=== PATIENT | female | born 1980 | race African-American/Black ===

== ENCOUNTER 2021-05-10 20:54 | Emergency (ER) | payer OTHER ==
[2021-05-10 21:05] VITALS: BP 136/83; PULSE 81; TEMP 98.6; BMI 25.9
[2021-05-10] MEDS ORDERED: KETOROLAC TROMETHAMINE 15 MG/ML VIAL IM ONE (21:18)
[2021-05-10] MEDS ORDERED: diazePAM 5 MG TABLET PO ONE (21:21)
[2021-05-10] MEDS ORDERED: LIDOCAINE 5% TOPICAL PATCH TP ONE (21:21)
[2021-05-10] MEDS ORDERED: diazePAM 5 MG TABLET ONE (21:27)
[2021-05-10] MEDS ORDERED: KETOROLAC TROMETHAMINE 15 MG/ML VIAL ONE (21:27)
[2021-05-10] MEDS ORDERED: LIDOCAINE 5% TOPICAL PATCH ONE (21:27)
[2021-05-11] MEDS ORDERED: LIDOCAINE PATCH REMOVAL MC ONE (09:30)
== END 2021-05-10 22:09 | disposition home or self-care (01) ==
LOC: JERFT 20:54 → JER 20:54 → JERFT 22:09
PROC: 3E0233Z Introduction of Anti-inflammatory into Muscle, Percutaneous Approach (ICD-10-PCS; principal; 2021-05-10)
DX: S29.012A Strain of muscle and tendon of back wall of thorax, initial encounter (principal)
CPT/HCPCS: 99284-25

== ENCOUNTER 2022-09-03 17:46 | Inpatient (IN) | payer OTHER ==
[2022-09-03 19:00] LABS: BASO % 1.4 % (0-2.0); EOS % 0.6 % (0-4.5); HEMATOCRIT 43.8 % (32.4-45.2); HEMOGLOBIN 13.8 GM/dL (10.7-15.3); LYMPH % 13.5 % (8-40); MCH 30.1 pg (25.7-33.7); MCHC 31.6 g/dl (32.0-36.0); MEAN CELL VOLUME 95.3 fl (80-96); MEAN PLT VOLUME 9.7 fl (7.5-11.1); MONO % 11.9 % (3.8-10.2); NEUT % 72.6 % (42.8-82.8); PLATELET COUNT 211 10^3/uL (134-434); RDW 13.3 % (11.6-15.6); WHITE BLOOD COUNT 5.7 K/mm3 (4.0-10.0)
[2022-09-03 19:07] LABS: INR 1.01 (0.83-1.09); PROTHROMBIN TIME (PATIENT) 11.6 SEC (9.7-13.0)
[2022-09-03 19:09] LABS: ACTIVATED PTT 28.1 SECONDS (25.2-36.5)
[2022-09-03] MEDS ORDERED: ASPIRIN 81 MG CHEWABLE TABLETS PO ONE (19:17)
[2022-09-03] MEDS ORDERED: CLOPIDOGREL BISULFATE 300 MG TABLET PO ONE (19:18)
[2022-09-03 19:21] LABS: ALBUMIN 3.2 g/dl (3.4-5.0); CALCIUM 8.4 mg/dL (8.5-10.1)
[2022-09-03] MEDS ORDERED: ASPIRIN 81 MG CHEWABLE TABLETS ONE (19:23)
[2022-09-03] MEDS ORDERED: CLOPIDOGREL BISULFATE 300 MG TABLET ONE (19:23)
[2022-09-03 19:26] LABS: CREATININE 0.8 mg/dL (0.55-1.3); TOT PROT 6.7 g/dl (6.4-8.2)
[2022-09-03 19:28] LABS: BILIRUBIN,TOTAL 0.2 mg/dL (0.2-1)
[2022-09-03] MEDS: SODIUM CHLORIDE 1,000 ML IV SCH (19:33)
[2022-09-03] MEDS ORDERED: ACETAMINOPHEN 1000 MG/100 ML BAG IVPB ONE (21:13)
[2022-09-03 21:22] LABS: URINE APPEARANCE CLEAR; URINE BILIRUBIN NEGATIVE (NEGATIVE); URINE COLOR YELLOW; URINE GLUCOSE (UA) NEGATIVE (NEGATIVE); URINE KETONE NEGATIVE (NEGATIVE)
[2022-09-03 21:23] LABS: URINE LEUK ESTERASE NEGATIVE (NEGATIVE); URINE NITRITE NEGATIVE (NEGATIVE); URINE PROTEIN NEGATIVE (NEGATIVE); URINE UROBILINOGEN 0.2 mg/dL (0.2-1.0)
[2022-09-03] MEDS ORDERED: ACETAMINOPHEN INJECTION 100 ML IVPB ONE (22:59)
[2022-09-04 03:30] VITALS: BMI 27.2
[2022-09-04] MEDS ORDERED: levETIRAcetam 500 MG/5 ML INJECTION VIAL IVPB ONE (05:45)
[2022-09-04 08:04] LABS: EOS % 1.9 % (0-4.5); HEMATOCRIT 40.4 % (32.4-45.2); HEMOGLOBIN 13.2 GM/dL (10.7-15.3); LYMPH % 28.9 % (8-40); MCH 30.8 pg (25.7-33.7); MCHC 32.7 g/dl (32.0-36.0); MEAN CELL VOLUME 94.2 fl (80-96); MEAN PLT VOLUME 10.4 fl (7.5-11.1); NEUT % 56.2 % (42.8-82.8); PLATELET COUNT 203 10^3/uL (134-434); RBC 4.29 M/mm3 (3.60-5.2); RDW 13.5 % (11.6-15.6)
[2022-09-04 08:08] LABS: ALBUMIN 2.9 g/dl (3.4-5.0); BLOOD UREA NITROGEN 5.2 mg/dL (7-18); CALCIUM 8.2 mg/dL (8.5-10.1)
[2022-09-04 08:11] LABS: CREATININE 0.6 mg/dL (0.55-1.3); PHOSPHOROUS 3.7 mg/dL (2.5-4.9)
[2022-09-04 08:14] LABS: BILIRUBIN,TOTAL 0.5 mg/dL (0.2-1); TOT PROT 5.9 g/dl (6.4-8.2)
[2022-09-04] MEDS: ASPIRIN 81 MG CHEWABLE TABLETS PO SCH (09:42)
[2022-09-04] MEDS: ENOXAPARIN NA (PORCINE) 40 MG/0.4 ML DISP.SYRIN SQ SCH (09:42)
[2022-09-04] MEDS: FOLIC ACID 1 MG TABLET (FP) PO SCH (09:42)
[2022-09-04] MEDS: levETIRAcetam 500 MG TABLET (FP) PO SCH ×2 (09:42→21:34)
[2022-09-04] MEDS: BICTEGRAV/EMTRICIT/TENOFOV (BIKTARVY) 50-200-25 MG TABLET PO SCH (11:02)
[2022-09-04] MEDS ORDERED: LIDOCAINE 5% TOPICAL PATCH TP SCH (13:45)
[2022-09-04] MEDS: SODIUM CHLORIDE 1,000 ML IV SCH (21:35)
[2022-09-04] MEDS: LIDOCAINE PATCH REMOVAL MC SCH (22:40)
[2022-09-05 08:23] LABS: ALBUMIN 2.8 g/dl (3.4-5.0); CALCIUM 8.4 mg/dL (8.5-10.1)
[2022-09-05 08:27] LABS: CREATININE 0.6 mg/dL (0.55-1.3)
[2022-09-05 08:28] LABS: BILIRUBIN,TOTAL 0.5 mg/dL (0.2-1)
[2022-09-05] MEDS: ENOXAPARIN NA (PORCINE) 40 MG/0.4 ML DISP.SYRIN SQ SCH (09:46)
[2022-09-05] MEDS: ASPIRIN 81 MG CHEWABLE TABLETS PO SCH (09:46)
[2022-09-05] MEDS: BICTEGRAV/EMTRICIT/TENOFOV (BIKTARVY) 50-200-25 MG TABLET PO SCH (09:46)
[2022-09-05] MEDS: levETIRAcetam 500 MG TABLET (FP) PO SCH ×2 (09:46→21:49)
[2022-09-05] MEDS: LIDOCAINE 5% TOPICAL PATCH TP SCH (09:46)
[2022-09-05] MEDS: FOLIC ACID 1 MG TABLET (FP) PO SCH (09:46)
[2022-09-05 18:00] VITALS: RESP 18
[2022-09-05] MEDS: LIDOCAINE PATCH REMOVAL MC SCH (22:11)
[2022-09-06 09:02] VITALS: BP 99/57; PULSE 100; TEMP 98.5
[2022-09-06] MEDS: ASPIRIN 81 MG CHEWABLE TABLETS PO SCH (11:07)
[2022-09-06] MEDS: LIDOCAINE 5% TOPICAL PATCH TP SCH (11:08)
[2022-09-06] MEDS: BICTEGRAV/EMTRICIT/TENOFOV (BIKTARVY) 50-200-25 MG TABLET PO SCH (11:08)
[2022-09-06] MEDS: FOLIC ACID 1 MG TABLET (FP) PO SCH (11:08)
[2022-09-06] MEDS: ENOXAPARIN NA (PORCINE) 40 MG/0.4 ML DISP.SYRIN SQ SCH (11:08)
[2022-09-06] MEDS: levETIRAcetam 500 MG TABLET (FP) PO SCH (11:08)
== END 2022-09-06 15:40 | disposition home or self-care (01) | DRG 894 ==
LOC: JER 17:46 → JERBED 19:19 → J4W 09-04 03:07
PROVIDERS: ADMIT Internal Medicine; ATTEND Internal Medicine
DX: G40.909 Epilepsy, unspecified, not intractable, without status epilepticus (principal); B20 Human immunodeficiency virus [HIV] disease; M54.9 Dorsalgia, unspecified; R29.898 Other symptoms and signs involving the musculoskeletal system; F41.9 Anxiety disorder, unspecified
CPT/HCPCS: 36415; 70450-TC; 70496-TC; 70498-TC; 70551-TC; 80053; 80061; 81003; 82308; 82550; 82962; 83036; 83735; 84100; 84443; 84484; 85025; 85610; 85730; 86359; 86360; 86850; 86900; 86901; 93005; 93010; 93306-TC; 95816; 97116-GP; 97162-GP; 99285-25; C9803-CS; U0003; U0005

== ENCOUNTER 2022-10-28 08:28 | Inpatient (IN) | payer OTHER ==
[2022-10-28] MEDS ORDERED: ONDANSETRON 4 MG/2 ML VIAL IVPUSH ONE ×2 (08:31→20:24)
[2022-10-28 08:46] VITALS: BMI 26.6
[2022-10-28] MEDS ORDERED: METOCLOPRAMIDE HCL INJECTION 10 MG/2 ML VIAL IVPUSH ONE (09:25)
[2022-10-28] MEDS ORDERED: SODIUM CHLORIDE 0.9% 500 ML INFUS.BAG IV ONE (09:25)
[2022-10-28] MEDS ORDERED: levETIRAcetam 500 MG/5 ML INJECTION VIAL IVPB ONE ×2 (10:32→10:40)
[2022-10-28] MEDS ORDERED: METOCLOPRAMIDE HCL INJECTION 10 MG/2 ML VIAL ONE (10:41)
[2022-10-28 10:50] LABS: BASO % 0.8 % (0-2.0); EOS % 2.1 % (0-4.5); HEMATOCRIT 42.4 % (32.4-45.2); LYMPH % 27.8 % (8-40); MEAN PLT VOLUME 10.4 fl (7.5-11.1); MONO % 9.8 % (3.8-10.2); NEUT % 59.5 % (42.8-82.8); PLATELET COUNT 192 10^3/uL (134-434); RDW 13.8 % (11.6-15.6); WHITE BLOOD COUNT 6.3 K/mm3 (4.0-10.0)
[2022-10-28 10:59] LABS: ACTIVATED PTT 27.2 SECONDS (25.2-36.5); INR 1.07 (0.83-1.09); PROTHROMBIN TIME (PATIENT) 12.3 SEC (9.7-13.0)
[2022-10-28] MEDS ORDERED: LORazepam 2 MG/ML SDV VIAL IVPUSH ONE (11:08)
[2022-10-28 11:11] LABS: CALCIUM 8.4 mg/dL (8.5-10.1)
[2022-10-28 11:12] LABS: ALBUMIN 3.2 g/dl (3.4-5.0); BLOOD UREA NITROGEN 8.7 mg/dL (7-18)
[2022-10-28 11:14] LABS: CREATININE 0.7 mg/dL (0.55-1.3)
[2022-10-28 11:16] LABS: BILIRUBIN,TOTAL 0.3 mg/dL (0.2-1); TOT PROT 6.7 g/dl (6.4-8.2)
[2022-10-28] MEDS ORDERED: ACETAMINOPHEN 1000 MG/100 ML BAG IVPB ONE ×2 (12:19→20:23)
[2022-10-28] MEDS ORDERED: ENOXAPARIN NA (PORCINE) 40 MG/0.4 ML DISP.SYRIN SQ ONE (18:03)
[2022-10-28 21:39] LABS: CHOLESTEROL 155 mg/dL (50-200)
[2022-10-28 21:40] LABS: LDL CHOLESTEROL (ONLY SJRH) 107 mg/dL (5-100); TRIGLYCERIDES 47 mg/dL (0-150)
[2022-10-28 21:42] LABS: HDL CHOLESTEROL 44 mg/dL (40-60)
[2022-10-28] MEDS: LACOSAMIDE 50 MG TABLET PO SCH (22:13)
[2022-10-28] MEDS: levETIRAcetam 500 MG TABLET (FP) PO SCH (22:13)
[2022-10-28] MEDS: ENOXAPARIN NA (PORCINE) 40 MG/0.4 ML DISP.SYRIN SQ SCH (22:17)
[2022-10-29] MEDS ORDERED: traMADol HCL 50 MG TABLET PO ONE (01:37)
[2022-10-29] MEDS: levETIRAcetam 500 MG TABLET (FP) PO SCH ×3 (07:36→21:31)
[2022-10-29] MEDS: LACOSAMIDE 50 MG TABLET PO SCH ×3 (07:38→21:31)
[2022-10-29 07:43] LABS: CALCIUM 8.5 mg/dL (8.5-10.1)
[2022-10-29 07:44] LABS: BLOOD UREA NITROGEN 6.7 mg/dL (7-18)
[2022-10-29 07:46] LABS: CREATININE 0.8 mg/dL (0.55-1.3); PHOSPHOROUS 3.4 mg/dL (2.5-4.9)
[2022-10-29 07:47] LABS: BILIRUBIN,TOTAL 0.7 mg/dL (0.2-1); TOT PROT 6.5 g/dl (6.4-8.2)
[2022-10-29] MEDS ORDERED: FLU VACC QS2022-23(6MOS UP)/PF 60 MCG/0.5 ML SYRINGE IM ONE (08:00)
[2022-10-29 09:39] LABS: PH,URINE 6.5 (5.0-8.0); URINE APPEARANCE CLEAR; URINE BILIRUBIN NEGATIVE (NEGATIVE); URINE COLOR YELLOW; URINE GLUCOSE (UA) NEGATIVE (NEGATIVE); URINE KETONE TRACE (NEGATIVE); URINE LEUK ESTERASE NEGATIVE (NEGATIVE); URINE NITRITE NEGATIVE (NEGATIVE); URINE PROTEIN NEGATIVE (NEGATIVE)
[2022-10-29 09:49] LABS: COCAINE, UR NEGATIVE (NEGATIVE); OPIATES, URI NEGATIVE (NEGATIVE); PHENCYCLIDINE,URINE NEGATIVE (NEGATIVE)
[2022-10-29 09:50] LABS: METHADONE, UR NEGATIVE (NEGATIVE); URINE BARBITURATES NEGATIVE (NEGATIVE)
[2022-10-29 09:52] LABS: URINE AMPHETAMINES NEGATIVE (NEGATIVE); URINE BENZODIAZEPINES NEGATIVE (NEGATIVE)
[2022-10-29] MEDS: ENOXAPARIN NA (PORCINE) 40 MG/0.4 ML DISP.SYRIN SQ SCH (10:37)
[2022-10-29] MEDS: BICTEGRAV/EMTRICIT/TENOFOV (BIKTARVY) 50-200-25 MG TABLET PO SCH (10:37)
[2022-10-29] MEDS: FOLIC ACID 1 MG TABLET (FP) PO SCH (10:37)
[2022-10-29] MEDS: ACETAMINOPHEN 325 MG TABLET (FP) PO PRN (16:28)
[2022-10-30 08:43] LABS: HEMOGLOBIN 13.9 GM/dL (10.7-15.3); MCH 30.3 pg (25.7-33.7); MCHC 32.4 g/dl (32.0-36.0); MEAN CELL VOLUME 93.5 fl (80-96); MEAN PLT VOLUME 10.1 fl (7.5-11.1); PLATELET COUNT 187 10^3/uL (134-434); RBC 4.59 M/mm3 (3.60-5.2); RDW 13.9 % (11.6-15.6); WHITE BLOOD COUNT 5.5 K/mm3 (4.0-10.0)
[2022-10-30 09:10] LABS: CALCIUM 8.8 mg/dL (8.5-10.1)
[2022-10-30 09:11] LABS: BLOOD UREA NITROGEN 9.4 mg/dL (7-18)
[2022-10-30 09:14] LABS: CREATININE 0.6 mg/dL (0.55-1.3)
[2022-10-30] MEDS: ENOXAPARIN NA (PORCINE) 40 MG/0.4 ML DISP.SYRIN SQ SCH (09:56)
[2022-10-30] MEDS: BICTEGRAV/EMTRICIT/TENOFOV (BIKTARVY) 50-200-25 MG TABLET PO SCH (09:57)
[2022-10-30] MEDS: levETIRAcetam 500 MG TABLET (FP) PO SCH ×2 (09:57→21:28)
[2022-10-30] MEDS: FOLIC ACID 1 MG TABLET (FP) PO SCH (09:57)
[2022-10-30] MEDS: LACOSAMIDE 50 MG TABLET PO SCH ×2 (09:57→21:29)
[2022-10-30] MEDS: ACETAMINOPHEN 325 MG TABLET (FP) PO PRN (11:31)
[2022-10-30] MEDS ORDERED: ALPRAZolam 0.25 MG TABLET PO PRN (14:53)
[2022-10-31 08:25] LABS: BLOOD UREA NITROGEN 13.8 mg/dL (7-18); CALCIUM 8.3 mg/dL (8.5-10.1)
[2022-10-31 08:26] LABS: HEMATOCRIT 42.7 % (32.4-45.2); HEMOGLOBIN 13.8 GM/dL (10.7-15.3); MCH 30.5 pg (25.7-33.7); MCHC 32.4 g/dl (32.0-36.0); MEAN CELL VOLUME 94.2 fl (80-96); MEAN PLT VOLUME 10.5 fl (7.5-11.1); PLATELET COUNT 191 10^3/uL (134-434); RBC 4.53 M/mm3 (3.60-5.2); RDW 13.9 % (11.6-15.6); WHITE BLOOD COUNT 6.9 K/mm3 (4.0-10.0)
[2022-10-31 08:28] LABS: CREATININE 0.7 mg/dL (0.55-1.3)
[2022-10-31] MEDS: levETIRAcetam 500 MG TABLET (FP) PO SCH ×2 (10:10→21:41)
[2022-10-31] MEDS: BICTEGRAV/EMTRICIT/TENOFOV (BIKTARVY) 50-200-25 MG TABLET PO SCH (10:10)
[2022-10-31] MEDS: FOLIC ACID 1 MG TABLET (FP) PO SCH (10:10)
[2022-10-31] MEDS: ENOXAPARIN NA (PORCINE) 40 MG/0.4 ML DISP.SYRIN SQ SCH (10:10)
[2022-10-31] MEDS: LACOSAMIDE 50 MG TABLET PO SCH ×2 (12:39→21:41)
[2022-11-01] MEDS: ACETAMINOPHEN 325 MG TABLET (FP) PO PRN (06:44)
[2022-11-01 08:15] LABS: HEMATOCRIT 42.9 % (32.4-45.2); HEMOGLOBIN 13.9 GM/dL (10.7-15.3); MCH 30.5 pg (25.7-33.7); MCHC 32.4 g/dl (32.0-36.0); MEAN CELL VOLUME 94.1 fl (80-96); MEAN PLT VOLUME 10.2 fl (7.5-11.1); PLATELET COUNT 183 10^3/uL (134-434); RBC 4.56 M/mm3 (3.60-5.2); RDW 13.6 % (11.6-15.6); WHITE BLOOD COUNT 6.9 K/mm3 (4.0-10.0)
[2022-11-01 08:30] LABS: CALCIUM 8.7 mg/dL (8.5-10.1)
[2022-11-01 08:34] LABS: CREATININE 0.7 mg/dL (0.55-1.3)
[2022-11-01] MEDS: FOLIC ACID 1 MG TABLET (FP) PO SCH (10:20)
[2022-11-01] MEDS: BICTEGRAV/EMTRICIT/TENOFOV (BIKTARVY) 50-200-25 MG TABLET PO SCH (10:20)
[2022-11-01] MEDS: levETIRAcetam 500 MG TABLET (FP) PO SCH ×2 (10:20→21:19)
[2022-11-01] MEDS: ENOXAPARIN NA (PORCINE) 40 MG/0.4 ML DISP.SYRIN SQ SCH (10:20)
[2022-11-01] MEDS: LACOSAMIDE 50 MG TABLET PO SCH ×2 (10:26→21:18)
[2022-11-01] MEDS ORDERED: LACOSAMIDE 100 MG TABLET PO SCH (13:55)
[2022-11-02 02:29] VITALS: RESP 18
[2022-11-02] MEDS: ACETAMINOPHEN 325 MG TABLET (FP) PO PRN (06:58)
[2022-11-02] MEDS: FOLIC ACID 1 MG TABLET (FP) PO SCH (09:55)
[2022-11-02] MEDS: LACOSAMIDE 50 MG TABLET PO SCH ×2 (09:55→21:25)
[2022-11-02] MEDS: levETIRAcetam 500 MG TABLET (FP) PO SCH ×2 (09:55→21:25)
[2022-11-02] MEDS: ENOXAPARIN NA (PORCINE) 40 MG/0.4 ML DISP.SYRIN SQ SCH (09:56)
[2022-11-02] MEDS: BICTEGRAV/EMTRICIT/TENOFOV (BIKTARVY) 50-200-25 MG TABLET PO SCH (09:56)
[2022-11-03 09:41] VITALS: BP 127/60; PULSE 102; TEMP 98.2
[2022-11-03] MEDS: BICTEGRAV/EMTRICIT/TENOFOV (BIKTARVY) 50-200-25 MG TABLET PO SCH (09:41)
[2022-11-03] MEDS: LACOSAMIDE 50 MG TABLET PO SCH (09:41)
[2022-11-03] MEDS: ENOXAPARIN NA (PORCINE) 40 MG/0.4 ML DISP.SYRIN SQ SCH (09:41)
[2022-11-03] MEDS: levETIRAcetam 500 MG TABLET (FP) PO SCH (09:42)
[2022-11-03] MEDS: FOLIC ACID 1 MG TABLET (FP) PO SCH (09:42)
== END 2022-11-03 16:14 | disposition home or self-care (01) | DRG 53 ==
LOC: JER 08:28 → JERBED 08:32 → J4W 19:01
PROVIDERS: ADMIT Internal Medicine; ATTEND Internal Medicine
DX: R56.9 Unspecified convulsions (principal); B20 Human immunodeficiency virus [HIV] disease; G93.89 Other specified disorders of brain; G45.9 Transient cerebral ischemic attack, unspecified; G81.94 Hemiplegia, unspecified affecting left nondominant side; F41.9 Anxiety disorder, unspecified; R73.9 Hyperglycemia, unspecified
CPT/HCPCS: 0241U-QW; 36415; 70450-TC; 70496-TC; 70498-TC; 70552-TC; 71045-TC-FY; 80048; 80053; 80061; 80177; 80201; 80307; 81003; 82533; 82550; 83036; 83735; 84100; 84443; 84484; 85025; 85027; 85610; 85730; 86359; 86360; 86850; 86900; 86901; 93005; 93010; 97116-GP; 97162-GP; 99285-25; A9579